=== PATIENT | female | born 1980 | race Caucasian/White ===

== ENCOUNTER 2025-02-26 08:28 | Outpatient (CLI) | payer OTHER, SELFPAY ==
--- NOTE | ~2025-02-26 | XR_ITS ---
X-rays left foot Indication: Pain, no injury Comparison: None Technique: 4 views left foot Findings/Impression: 1. No fracture, dislocation, or other acute abnormality identified left foot. Reviewed, dictated and finalized at location R.
== END 2025-02-26 08:29 | disposition home or self-care (01) ==
PROVIDERS: PCP Family Medicine; Visit Provider Family Medicine
DX: M79.672 Pain in left foot (principal)
CPT/HCPCS: 73630